=== PATIENT | male | born 1955 | race Caucasian/White ===

== ENCOUNTER → 2017-01-18 | Outpatient (CLI) | payer OTHER | END | disposition home or self-care (01) | LOC: CVU 12:10 | PROVIDERS: ATTEND Nurse Practitioner Family | DX: I82.813 Embolism and thrombosis of superficial veins of lower extremities, bilateral (principal); I87.2 Venous insufficiency (chronic) (peripheral); L81.9 Disorder of pigmentation, unspecified; I10 Essential (primary) hypertension; E11.9 Type 2 diabetes mellitus without complications; I48.91 Unspecified atrial fibrillation; F17.200 Nicotine dependence, unspecified, uncomplicated | CPT/HCPCS: 93922; 93970 ==

== ENCOUNTER → 2020-11-23 | Outpatient (CLI) | payer OTHER | END | disposition home or self-care (01) | LOC: RAD 12:53 | PROVIDERS: ATTEND Orthopaedic Surgery Adult Reconstructive Orthopaedic Surgery | DX: Z96.642 Presence of left artificial hip joint (principal) ==

== ENCOUNTER 2020-11-24 15:15 | Outpatient (CLI) | payer OTHER ==
[~2020-11-24 15:15] MED LIST: LIDOCAINE-MPF 1%, 5ML ONE
== END 2020-11-24 23:59 | disposition home or self-care (01) ==
LOC: RAD 15:15
PROVIDERS: ATTEND Orthopaedic Surgery Adult Reconstructive Orthopaedic Surgery
DX: L02.416 Cutaneous abscess of left lower limb (principal); Z96.642 Presence of left artificial hip joint
CPT/HCPCS: 10030; 76942; 87015; 87070; 87075; 87102; 87116; 87205; 87206; 89060